=== PATIENT | male | born 1985 | race Caucasian/White ===

== ENCOUNTER 2024-11-11 16:49 | Emergency (ER) | payer SELFPAY ==
[~2024-11-11] VITALS: Ht 170.2 cm; Wt 75.0 kg
[2024-11-11 17:56] VITALS: O2SAT 99
[2024-11-11] MEDS ORDERED: AMOX1TAB16 MT (21:49)
[2024-11-11] MEDS: KETOROLAC 15MG/ML VIAL IM ONE (21:56)
[2024-11-11 22:09] VITALS: BP 122/77; PULSE 66; RESP 18; TEMP 36.8; O2SAT 98
== END 2024-11-11 22:26 | disposition home or self-care (01) ==
LOC: ER 16:49
DX: K04.7 Periapical abscess without sinus (principal); F12.90 Cannabis use, unspecified, uncomplicated; F14.90 Cocaine use, unspecified, uncomplicated; F13.90 Sedative, hypnotic, or anxiolytic use, unspecified, uncomplicated
CPT/HCPCS: 99283; 96372; J1885